=== PATIENT | male | born 1980 | race Caucasian/White ===

== ENCOUNTER 2016-12-05 16:02 | Emergency (ER) | payer MEDICAID ==
[2016-12-05 16:25] VITALS: BP 136/77; PULSE 68; TEMP 97.7
[2016-12-05 16:26] VITALS: BMI 16.7
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
== END 2016-12-05 17:25 | disposition home or self-care (01) ==
LOC: ED 16:02 → EDMC 17:25
DX: S01.512A Laceration without foreign body of oral cavity, initial encounter (principal); X58.XXXA Exposure to other specified factors, initial encounter; Y93.9 Activity, unspecified
CPT/HCPCS: 99282